=== PATIENT | male | born 1950 | race American Indian/Alaskan Native ===

== ENCOUNTER 2021-04-24 09:55 | Emergency (ER) | payer MEDICARE ==
[2021-04-24] MEDS ORDERED: ONDANSETRON 4 MG ODT TAB PO ONE (10:29)
[2021-04-24] MEDS ORDERED: MORPHINE 4 MG/1 ML INJ IM ONE (10:30)
[2021-04-24 10:59] VITALS: BP 121/65
--- NOTE | 2021-04-24 10:59 | Emergency Department Report ---
ED Abdominal Pain HPI - General Chief Complaint: Abdominal Pain Stated Complaint: KIDNEY PAIN Time Seen by Provider: 04/24/21 10:11 Source: patient Mode of arrival: Ambulatory Limitations: No Limitations - History of Present Illness Initial Comments: Patient is a 70-year-old male presents emergency room with complaints of left- sided abdominal pain that has been ongoing for a couple of months but increased last night. Patient states that he was diagnosed with a mass on his kidney and LAD which they believe could be cancerous. He is currently being worked up at [facility] for cancer and is seeing a kidney specialist and a oncologist. He reports that he had a CT scan yesterday at [place]. He states he is scheduled to have an MRI. Patient was given a prescription for Percocet but he reports he is worried about taking medication. He states the pain last night kept him awake but he did not take anything for it. He states he is also been having hematuria during this time period. He denies any nausea, vomiting, diarrhea, hematochezia, melena, hematemesis, fever. He states he was also advised that he had kidney dysfunction from taking ibuprofen for 10 years. No allergies to medications. Severity scale (0 -10): 8 - Related Data Previous Rx's Medication Instructions Recorded Last Taken Type traMADoL [Ultram 50 MG tab] 50 mg PO Q6HR PRN #12 tablet 04/24/21 Unknown Rx Allergies Allergy/AdvReac Type Severity Reaction Status Date / Time No Known Allergies Allergy Unverified 04/24/21 10:09 ED Review of Systems ROS: Stated complaint: KIDNEY PAIN Other details as noted in HPI Comment: All other systems reviewed and negative ED Past Medical Hx - Past Medical History Previous Medical History?: No - Medications Home Medications: Home Medications Medication Instructions Recorded Confirmed Last Taken Type traMADoL [Ultram 50 MG tab] 50 mg PO Q6HR PRN #12 tablet 04/24/21 Unknown Rx ED Physical Exam - General Limitations: No Limitations General appearance: alert, in no apparent distress - Head Head exam: Present: atraumatic, normocephalic - Eye Eye exam: Present: normal appearance - ENT ENT exam: Present: mucous membranes moist - Respiratory Respiratory exam: Present: normal lung sounds bilaterally. Absent: respiratory distress, wheezes, rales, rhonchi, stridor, chest wall tenderness, accessory muscle use, decreased breath sounds, prolonged expiratory - Cardiovascular Cardiovascular Exam: Present: regular rate, normal rhythm, normal heart sounds. Absent: systolic murmur, diastolic murmur, rubs, gallop - GI/Abdominal GI/Abdominal exam: Present: soft, normal bowel sounds. Absent: distended, ten derness, guarding, rebound, rigid - Back Exam Back exam: Absent: CVA tenderness (R), CVA tenderness (L) - Neurological Exam Neurological exam: Present: alert, oriented X3 - Psychiatric Psychiatric exam: Present: normal affect, normal mood - Skin Skin exam: Present: warm, dry, intact ED Course Vital Signs 04/24/21 04/24/21 04/24/21 10:07 10:52 10:58 Temperature 97.4 F L 97.9 F 97.7 F Pulse Rate 81 73 63 Respiratory 18 16 14 Rate Blood Pressure 122/79 121/65 Blood Pressure 131/73 [Left] O2 Sat by Pulse 99 98 97 Oximetry ED Medical Decision Making - Lab Data Result diagrams: 04/24/21 10:35 04/24/21 10:35 Lab Results 04/24/21 04/24/21 04/24/21 Range/Units 10:35 10:35 11:00 WBC 11.6 H (4.5-11.0) K/mm3 RBC 4.09 (3.65-5.03) M/mm3 Hgb 12.9 (11.8-15.2) gm/dl Hct 37.8 (35.5-45.6) % MCV 92 (84-94) fl MCH 32 (28-32) pg MCHC 34 (32-34) % RDW 13.2 (13.2-15.2) % Plt Count 307 (140-440) K/mm3 Lymph % (Auto) 11.5 L (13.4-35.0) % [place] % (Auto) 10.7 H (0.0-7.3) % Eos % (Auto) 3.6 (0.0-4.3) % Baso % (Auto) 0.4 (0.0-1.8) % Lymph # (Auto) 1.3 (1.2-5.4) K/mm3 [place] # (Auto) 1.2 H (0.0-0.8) K/mm3 Eos # (Auto) 0.4 (0.0-0.4) K/mm3 Baso # (Auto) 0.0 (0.0-0.1) K/mm3 Seg Neutrophils % 73.8 H (40.0-70.0) % Seg Neutrophils # 8.6 H (1.8-7.7) K/mm3 Sodium 134 L (137-145) mmol/L Potassium 5.2 H (3.6-5.0) mmol/L Chloride 97.9 L (98-107) mmol/L Carbon Dioxide 26 (22-30) mmol/L Anion Gap 15 mmol/L BUN 27 H (9-20) mg/dL Creatinine 2.0 H (0.8-1.3) mg/dL Estimated GFR 40 ml/min BUN/Creatinine Ratio 14 % Glucose 126 H (75-100) mg/dL Calcium 9.7 (8.4-10.2) mg/dL Total Bilirubin 0.50 (0.1-1.2) mg/dL AST 27 (5-40) units/L ALT 25 (7-56) units/L Alkaline Phosphatase 78 (35-129) units/L Total Protein 8.7 H (6.3-8.2) g/dL Albumin 4.2 (3.9-5) g/dL Albumin/Globulin Ratio 0.9 % Urine Color Yellow (Yellow) Urine Turbidity Clear (Clear) Urine pH 5.0 (5.0-7.0) Ur Specific [place] 1.017 (1.003-1.030) Urine Protein <15 mg/dl (Negative) mg/dL Urine Glucose (UA) Neg (Negative) mg/dL Urine Ketones Neg (Negative) mg/dL Urine Blood Neg (Negative) Urine Nitrite Neg (Negative) Urine Bilirubin Neg (Negative) Urine Urobilinogen 2.0 (<2.0) mg/dL Ur Leukocyte Esterase Neg (Negative) Urine WBC (Auto) < 1.0 (0.0-6.0) /HPF Urine RBC (Auto) 1.0 (0.0-6.0) /HPF Vital Signs 04/24/21 04/24/21 04/24/21 10:07 10:52 10:58 Temperature 97.4 F L 97.9 F 97.7 F Pulse Rate 81 73 63 Respiratory 18 16 14 Rate Blood Pressure 122/79 121/65 Blood Pressure 131/73 [Left] O2 Sat by Pulse 99 98 97 Oximetry - Medical Decision Making Patient is a 70-year-old male presents emergency room with complaints of left- sided abdominal pain that has been ongoing for a couple of months but increased last night. Patient states that he was diagnosed with a mass on his kidney and LAD which they believe could be cancerous. He is currently being worked up at [facility] for cancer and is seeing a kidney specialist and a oncologist. He reports that he had a CT scan yesterday at [place]. He states he is scheduled to have an MRI. Patient was given a prescription for Percocet but he reports he is worried about taking medication. He states the pain last night kept him awake but he did not take anything for it. He states he is also been having hematuria during this time period. He denies any nausea, vomiting, diarrhea, hematochezia, melena, hematemesis, fever. He states he was also advised that he had kidney dysfunction from taking ibuprofen for 10 years. No allergies to medications. Vitals are normal. No abdominal or CVA tenderness on exam. No significant leukocytosis. Labs consistent with CKD, he has very mild hyperkalemia at 5.2, mild dehydration encouraged oral hydration, patient is having no vomiting. Patient given Kayexalate for hyperkalemia. UA is normal limits. Patient given medications in the emergency department with improvement of his pain. Patient is already appropriately being worked up and is seeing specialists and has an MRI scheduled and just had CT imaging performed yesterday. Patient given prescription for tramadol as he states he does not want to take his Percocet. Discussed all results with patient answer questions and discussed the importance of outpatient follow-up. Discussed very strict return precautions. Discussed case with Dr. Mendiola, ER attending who is agreeable with plan. Advised patient Please take medication as prescribed as needed for pain. Increase your fluid intake. Follow-up with a primary care doctor, you need to have your labs retested in approximately 3 to 5 days. Follow-up with your oracle technical architect. Follow-up with your oncologist. Return to emergency room for any new or worsening symptoms. Critical care attestation.: If time is entered above; I have spent that time in minutes in the direct care of this critically ill patient, excluding procedure time. ED Disposition Clinical Impression: Hyperkalemia Abdominal pain Qualifiers: Abdominal location: left lower quadrant Qualified Code(s): R10.32 - Left lower quadrant pain CKD (chronic kidney disease) Qualifiers: Chronic kidney disease stage: unspecified stage Qualified Code(s): N18.9 - Chronic kidney disease, unspecified Disposition: 01 HOME / SELF CARE / HOMELESS Is pt being admited?: No Does the pt Need Aspirin: No Condition: Stable Instructions: Abdominal Pain, Adult, Chronic Kidney Disease, Adult Additional Instructions: Please take medication as prescribed as needed for pain. Increase your fluid intake. Follow-up with a primary care doctor, you need to have your labs retested in approximately 3 to 5 days. Follow-up with your oracle technical architect. Follow-up with your oncologist. Return to emergency room for any new or worsening symptoms. Prescriptions: traMADoL [Ultram 50 MG tab] 50 mg PO Q6HR PRN #12 tablet PRN Reason: Pain Referrals: MARILEE AYERS MD [Staff Physician] - 3-5 Days your, oracle technical architect [Other] - 3-5 Days your, oncologist [Other] - 3-5 Days Time of Disposition: 11:42 Print Language: KAZAKH
[2021-04-24 11:07] LABS: Basophils % (Auto) 0.4 % (0.0-1.8); Eosinophils # (Auto) 0.4 K/mm3 (0.0-0.4); Eosinophils % (Auto) 3.6 % (0.0-4.3); Hematocrit 37.8 % (35.5-45.6); Hemoglobin 12.9 gm/dl (11.8-15.2); Lymphocytes # (Auto) 1.3 K/mm3 (1.2-5.4); Lymphocytes % (Auto) 11.5 % (13.4-35.0); Mean Corpuscular HGB Conc 34 % (32-34); Mean Corpuscular Volume 92 fl (84-94); Monocytes # (Auto) 1.2 K/mm3 (0.0-0.8); Monocytes % (Auto) 10.7 % (0.0-7.3); Platelet Count 307 K/mm3 (140-440); Red Blood Count 4.09 M/mm3 (3.65-5.03); Red Cell Distribution Width 13.2 % (13.2-15.2)
[2021-04-24 11:13] LABS: Bilirubin,Urine NEG (Negative); Blood,Urine NEG (Negative); Color,Urine Yellow (Yellow); Protein,Urine <15 mg/dL mg/dL (Negative); WBC,Urine < 1.0 /HPF (0.0-6.0)
[2021-04-24 11:26] LABS: Albumin 4.2 g/dL (3.9-5); Calcium 9.7 mg/dL (8.4-10.2)
[2021-04-24] MEDS ORDERED: SODIUM POLYSTYRENE 15 GM/60 ML ORAL LIQD PO ONE (11:41)
== END 2021-04-24 12:12 | disposition home or self-care (01) ==
LOC: ED 09:55
DX: N18.9 Chronic kidney disease, unspecified (principal); E87.5 Hyperkalemia; R10.9 Unspecified abdominal pain
CPT/HCPCS: 36415; 80053; 81001; 85025; 96372; 99283; J2270; Q0162

== ENCOUNTER 2021-05-06 13:08 | Emergency (ER) | payer MEDICARE ==
[2021-05-06] MEDS ORDERED: MORPHINE 4 MG/1 ML INJ IM ONE (13:38)
[2021-05-06] MEDS ORDERED: ONDANSETRON 4 MG ODT TAB PO ONE (13:38)
--- NOTE | 2021-05-06 13:42 | Emergency Department Report ---
HPI - General Chief Complaint: Abdominal Pain Time Seen by Provider: 05/06/21 13:25 - HPI HPI: This is a 70-year-old -[place] male who has a history of a left-sided renal mass that was found out to be cancerous. This was found 6 weeks ago while in [facility]. He is now being followed by urology, oncology and nephrology at [facility]. The patient comes in complaining of severe left mid flank and mid back pain. This is the same pain that he has been dealing with that initially brought him to the emergency department in [facility]. He has been given some prescriptions for Percocet, but was initially concerned about taking that medication. The patient was seen here for similar symptoms about 2 weeks ago and was prescribed tramadol. He has used this medication without much relief. Patient says that he got a shot of morphine when he was here last time and "that was the last time that I was pain- free." Patient also says that he has been having some difficulty with urination over the past 1 to 2 days. He is able to urinate but it takes some time for him to void. ED Past Medical Hx - Past Medical History Previous Medical History?: Yes Hx Renal Disease: Yes Hx of Cancer: Yes (kidney) - Surgical History Past Surgical History?: No - Social History Smoking Status: Never Smoker Substance Use Type: Alcohol, Prescribed - Medications Home Medications: Home Medications Medication Instructions Recorded Confirmed Last Taken Type traMADoL [Ultram 50 MG tab] 50 mg PO Q6HR PRN #12 tablet 04/24/21 Unknown Rx Tamsulosin [Flomax] 0.4 mg PO QDAY #10 cap 05/06/21 Unknown Rx oxyCODONE /ACETAMINOPHEN [Percocet 1 tab PO Q6HR PRN #12 tablet 05/06/21 Unknown Rx 5/325] ED Review of Systems ROS: Stated complaint: LOWER ABD,AND BACK PAIN Other details as noted in HPI Comment: All other systems reviewed and negative Constitutional: denies: chills, fever Eyes: denies: eye pain, vision change ENT: denies: ear pain, throat pain Respiratory: denies: cough, shortness of breath Cardiovascular: denies: chest pain, palpitations Gastrointestinal: abdominal pain (Left-sided flank pain). denies: vomiting Genitourinary: other (Difficulty with urination). denies: discharge Musculoskeletal: denies: back pain, arthralgia Skin: denies: rash, lesions Neurological: denies: headache, weakness Physical Exam - Physical Exam Vital Signs: Vital Signs 05/06/21 13:15 Temperature 97.6 F Pulse Rate 73 Respiratory 20 Rate Blood Pressure 122/72 O2 Sat by Pulse 98 Oximetry Physical Exam: GENERAL: The patient is well-developed well-nourished. HENT: Normocephalic. Atraumatic. Patient has moist mucous membranes. EYES: Extraocular motions are intact. NECK: Supple. Trachea is midline. CHEST/LUNGS: Clear to auscultation. There is no respiratory distress noted. HEART/CARDIOVASCULAR: Regular. There is no tachycardia. There is no murmur. ABDOMEN: Abdomen is soft, nontender. Unable to reproduce left-sided abdominal or flank pain to palpation. Patient has normal bowel sounds. SKIN: Skin is warm and dry. NEURO: The patient is awake, alert, and oriented. The patient is cooperative. The patient has no focal neurologic deficits. Normal speech. MUSCULOSKELETAL: There is no tenderness or deformity. There is no limitation range of motion. BACK: No midline thoracic or lumbar tenderness to palpation. No CVA tenderness to palpation. ED Course Vital Signs 05/06/21 13:15 Temperature 97.6 F Pulse Rate 73 Respiratory 20 Rate Blood Pressure 122/72 O2 Sat by Pulse 98 Oximetry ED Medical Decision Making - Lab Data Result diagrams: 05/06/21 13:49 05/06/21 13:49 Lab Results 05/06/21 05/06/21 05/06/21 Range/Units 13:49 13:49 Unknown WBC 12.5 H (4.5-11.0) K/mm3 RBC 3.93 (3.65-5.03) M/mm3 Hgb 11.8 (11.8-15.2) gm/dl Hct 36.1 (35.5-45.6) % MCV 92 (84-94) fl MCH 30 (28-32) pg MCHC 33 (32-34) % RDW 12.9 L (13.2-15.2) % Plt Count 350 (140-440) K/mm3 Lymph % (Auto) 8.9 L (13.4-35.0) % [place] % (Auto) 10.0 H (0.0-7.3) % Eos % (Auto) 3.3 (0.0-4.3) % Baso % (Auto) 0.3 (0.0-1.8) % Lymph # (Auto) 1.1 L (1.2-5.4) K/mm3 [place] # (Auto) 1.2 H (0.0-0.8) K/mm3 Eos # (Auto) 0.4 (0.0-0.4) K/mm3 Baso # (Auto) 0.0 (0.0-0.1) K/mm3 Seg Neutrophils % 77.5 H (40.0-70.0) % Seg Neutrophils # 9.7 H (1.8-7.7) K/mm3 Sodium 132 L (137-145) mmol/L Potassium 5.4 H (3.6-5.0) mmol/L Chloride 97.1 L (98-107) mmol/L Carbon Dioxide 25 (22-30) mmol/L Anion Gap 15 mmol/L BUN 26 H (9-20) mg/dL Creatinine 1.9 H (0.8-1.3) mg/dL Estimated GFR 43 ml/min BUN/Creatinine Ratio 14 % Glucose 133 H (75-100) mg/dL Calcium 9.4 (8.4-10.2) mg/dL Total Bilirubin 0.20 (0.1-1.2) mg/dL AST 19 (5-40) units/L ALT 17 (7-56) units/L Alkaline Phosphatase 77 (35-129) units/L Total Protein 7.7 (6.3-8.2) g/dL Albumin 3.8 L (3.9-5) g/dL Albumin/Globulin Ratio 1.0 % Urine Color Yellow (Yellow) Urine Turbidity Clear (Clear) Urine pH 5.0 (5.0-7.0) Ur Specific [place] 1.017 (1.003-1.030) Urine Protein <15 mg/dl (Negative) mg/dL Urine Glucose (UA) Neg (Negative) mg/dL Urine Ketones Neg (Negative) mg/dL Urine Blood Neg (Negative) Urine Nitrite Neg (Negative) Urine Bilirubin Neg (Negative) Urine Urobilinogen < 2.0 (<2.0) mg/dL Ur Leukocyte Esterase Neg (Negative) Urine WBC (Auto) 1.0 (0.0-6.0) /HPF Urine RBC (Auto) 1.0 (0.0-6.0) /HPF U Epithel Cells (Auto) < 1.0 (0-13.0) /HPF Urine Mucus Few /HPF - Medical Decision Making This patient presents to the emergency department with the complaint of left- sided abdominal, flank and back pain with a history of a cancerous left renal mass. Labs have been mostly unremarkable including CBC, metabolic panel, and urinalysis, other than some chronic kidney disease consistent with previous visits and mild hyperkalemia with a potassium of 5.5. The patient was given a dose of Kayexalate. Patient was given a dose of IV analgesia and upon reevaluation is feeling greatly improved and says the pain has resolved. The patient says that he has had multiple CT imaging of this mass in the past 6 weeks, and is currently being followed at [place] by oncology and urology. Since the patient's pain has resolved with a single dose of analgesia, and based on the labs, I do not feel that the patient needed repeat CT imaging at this time. Vital signs have been reassuring including being afebrile. He has been given a small prescription of pain medication and instructed to follow-up with his doctors at [place]. Critical Care Time: No Critical care attestation.: If time is entered above; I have spent that time in minutes in the direct care of this critically ill patient, excluding procedure time. ED Disposition Clinical Impression: Renal mass, left, Flank pain, Hyperkalemia CKD (chronic kidney disease) Qualifiers: Chronic kidney disease stage: unspecified stage Qualified Code(s): N18.9 - Chronic kidney disease, unspecified Disposition: 01 HOME / SELF CARE / HOMELESS Is pt being admited?: No Condition: Stable Instructions: Renal Mass, Hyperkalemia, Flank Pain, Adult, Chronic Kidney Disease, Adult Additional Instructions: Please follow-up with your primary care physician, oncologist, and urologist this week. You have been prescribed a medication that is sedating and therefore should not be taken prior to driving, working, and responsible for children and in no way should be mixed with alcohol of any quantity. Return to the emergency department with any worsening of your symptoms, new or concerning symptoms not addressed during this current emergency department visit, or with any acute distress. Prescriptions: Tamsulosin [Flomax] 0.4 mg PO QDAY #10 cap oxyCODONE /ACETAMINOPHEN [Percocet 5/325] 1 tab PO Q6HR PRN #12 tablet PRN Reason: Pain Referrals: PRIMARY CARE, [Primary Care Provider] - 2-3 Days Urologist, Your [Other] - 2-3 Days Oncologist, Your [Other] - 2-3 Days Time of Disposition: 15:15
[2021-05-06] MEDS ORDERED: ONDANSETRON 4 MG/2 ML INJ IV ONE (13:45)
[2021-05-06] MEDS ORDERED: MORPHINE 4 MG/1 ML INJ IV ONE (13:45)
[2021-05-06] MEDS ORDERED: HYDROmorphone 1 MG/1 ML INJ IV ONE (14:08)
[2021-05-06 14:23] LABS: Bilirubin,Urine NEG (Negative); Blood,Urine NEG (Negative); Color,Urine Yellow (Yellow); Mucus,Urine FEW /HPF; Protein,Urine <15 mg/dL mg/dL (Negative); Urobilinogen,Urine < 2.0 mg/dL (<2.0)
[2021-05-06 14:28] LABS: Eosinophils # (Auto) 0.4 K/mm3 (0.0-0.4); Eosinophils % (Auto) 3.3 % (0.0-4.3); Hematocrit 36.1 % (35.5-45.6); Hemoglobin 11.8 gm/dl (11.8-15.2); Lymphocytes # (Auto) 1.1 K/mm3 (1.2-5.4); Lymphocytes % (Auto) 8.9 % (13.4-35.0); Mean Corpuscular HGB Conc 33 % (32-34); Mean Corpuscular Volume 92 fl (84-94); Monocytes # (Auto) 1.2 K/mm3 (0.0-0.8); Platelet Count 350 K/mm3 (140-440); Red Blood Count 3.93 M/mm3 (3.65-5.03)
[2021-05-06 14:30] LABS: Basophils % (Auto) 0.3 % (0.0-1.8); Red Cell Distribution Width 12.9 % (13.2-15.2)
[2021-05-06 14:45] LABS: Albumin 3.8 g/dL (3.9-5); Calcium 9.4 mg/dL (8.4-10.2)
[2021-05-06] MEDS ORDERED: SODIUM POLYSTYRENE 15 GM/60 ML ORAL LIQD PO ONE (14:55)
[2021-05-06 15:36] VITALS: BP 114/66
== END 2021-05-06 15:36 | disposition home or self-care (01) ==
LOC: ED 13:08
DX: N18.9 Chronic kidney disease, unspecified (principal); N28.89 Other specified disorders of kidney and ureter; E87.5 Hyperkalemia; Z72.89 Other problems related to lifestyle; Z79.899 Other long term (current) drug therapy
CPT/HCPCS: 36415; 80053; 81001; 85025; 96374; 96375; 99283; J1170; J2405; 99282

== ENCOUNTER 2021-05-14 11:28 | Emergency (ER) | payer MEDICARE ==
[2021-05-14] MEDS ORDERED: ONDANSETRON 4 MG/2 ML INJ IM ONE (16:33)
[2021-05-14] MEDS ORDERED: HYDROmorphone 1 MG/1 ML INJ IM ONE (16:33)
--- NOTE | 2021-05-14 16:34 | Emergency Department Report ---
ED Abdominal Pain HPI - General Chief Complaint: Abdominal Pain Stated Complaint: BODY PAIN Time Seen by Provider: 05/14/21 16:12 Source: patient Mode of arrival: Ambulatory Limitations: No Limitations - History of Present Illness Initial Comments: 70-year-old -[place] male who has a history of chronic renal insufficiency and a left-sided renal neoplastic mass found 6 weeks ago while in [facility]. Pt is getting a "second opinion" and workup by the oncologist, urologist, and paper cap machine operator at [facility]. Patient presents to the hospital planing of severe left mid flank and mid back pain ongoing since this initial diagnosis 6 weeks ago. Patient has been receiving intermittent Percocet prescriptions and is currently out. Patient states has received a pain shot during ED visit in the past and requesting another one to help his current pain. No reports of nausea, vomiting, fever, or hematuria. Patient was prescribed Flomax due to reported difficulty urinating with last ED visit on the and states symptoms have improved. Patient has received multiple CAT scans with last CAT scan on April 23 prior to his initial ER visit this month. This is patient's third ED visit this month for pain related to his cancer. He does not have a primary care doctor or instructor painting to prescribe him narcotics for pain relief. - Related Data Previous Rx's Medication Instructions Recorded Last Taken Type traMADoL [Ultram 50 MG tab] 50 mg PO Q6HR PRN #12 tablet 04/24/21 Unknown Rx Tamsulosin [Flomax] 0.4 mg PO QDAY #10 cap 05/06/21 Unknown Rx oxyCODONE /ACETAMINOPHEN [Percocet 1 tab PO Q6HR PRN #12 tablet 05/14/21 Unknown Rx 5/325 mg] Allergies Allergy/AdvReac Type Severity Reaction Status Date / Time No Known Allergies Allergy Unverified 04/24/21 10:09 ED Review of Systems ROS: Stated complaint: BODY PAIN Other details as noted in HPI Comment: All other systems reviewed and negative ED Past Medical Hx - Past Medical History Previous Medical History?: Yes Hx Renal Disease: Yes - Surgical History Past Surgical History?: No - Social History Smoking Status: Never Smoker - Medications Home Medications: Home Medications Medication Instructions Recorded Confirmed Last Taken Type traMADoL [Ultram 50 MG tab] 50 mg PO Q6HR PRN #12 tablet 04/24/21 Unknown Rx Tamsulosin [Flomax] 0.4 mg PO QDAY #10 cap 05/06/21 Unknown Rx oxyCODONE /ACETAMINOPHEN [Percocet 1 tab PO Q6HR PRN #12 tablet 05/14/21 Unknown Rx 5/325 mg] ED Physical Exam - General Limitations: No Limitations - Other Other exam information: General: Uncomfortable secondary to pain Head: Atraumatic Eyes: normal appearance ENT: Moist mucous membranes Neck: Normal appearance, no midline tenderness Chest: Clear to auscultation bilaterally CV: Regular rate and rhythm Abdomen: Soft, normal bowel sounds, left sided abdominal pain, left flank tenderness no rebound or guarding Back: Normal inspection Extremity: Normal inspection, full range of motion Neuro: Alert O x 3, no facial asymmetry, speech clear, no gross motor sensory deficit Psych: Agitated Skin: No rash ED Course Vital Signs 05/14/21 05/14/21 15:37 16:51 Temperature 98.0 F Pulse Rate 68 Respiratory 20 18 Rate Blood Pressure 147/85 O2 Sat by Pulse 99 Oximetry - Consultations Consultation #1: 05/14/21 17:45 Case discussed with paper cap machine operator on-call Dr. Hailey Leon Suggest Kayexalate 45 g and outpatient follow-up with his paper cap machine operator ED Medical Decision Making - Lab Data Result diagrams: 05/14/21 16:43 05/14/21 16:43 Lab Results 05/14/21 05/14/21 05/14/21 Range/Units 16:43 16:43 Unknown WBC 14.6 H (4.5-11.0) K/mm3 RBC 4.17 (3.65-5.03) M/mm3 Hgb 12.5 (11.8-15.2) gm/dl Hct 38.4 (35.5-45.6) % MCV 92 (84-94) fl MCH 30 (28-32) pg MCHC 33 (32-34) % RDW 13.3 (13.2-15.2) % Plt Count 348 (140-440) K/mm3 Lymph % (Auto) 9.0 L (13.4-35.0) % [place] % (Auto) 10.6 H (0.0-7.3) % Eos % (Auto) 1.4 (0.0-4.3) % Baso % (Auto) 0.2 (0.0-1.8) % Lymph # (Auto) 1.3 (1.2-5.4) K/mm3 [place] # (Auto) 1.5 H (0.0-0.8) K/mm3 Eos # (Auto) 0.2 (0.0-0.4) K/mm3 Baso # (Auto) 0.0 (0.0-0.1) K/mm3 Seg Neutrophils % 78.8 H (40.0-70.0) % Seg Neutrophils # 11.5 H (1.8-7.7) K/mm3 Sodium 133 L (137-145) mmol/L Potassium 5.5 H (3.6-5.0) mmol/L Chloride 95.3 L (98-107) mmol/L Carbon Dioxide 25 (22-30) mmol/L Anion Gap 18 mmol/L BUN 26 H (9-20) mg/dL Creatinine 1.7 H (0.8-1.3) mg/dL Estimated GFR 49 ml/min BUN/Creatinine Ratio 15 % Glucose 100 (75-100) mg/dL Calcium 9.5 (8.4-10.2) mg/dL Total Bilirubin 0.30 (0.1-1.2) mg/dL AST 25 (5-40) units/L ALT 20 (7-56) units/L Alkaline Phosphatase 87 (35-129) units/L Total Protein 7.6 (6.3-8.2) g/dL Albumin 4.1 (3.9-5) g/dL Albumin/Globulin Ratio 1.2 % Urine Color Yellow (Yellow) Urine Turbidity Clear (Clear) Urine pH 5.0 (5.0-7.0) Ur Specific [place] 1.019 (1.003-1.030) Urine Protein 30 mg/dl (Negative) mg/dL Urine Glucose (UA) Neg (Negative) mg/dL Urine Ketones Neg (Negative) mg/dL Urine Blood Neg (Negative) Urine Nitrite Neg (Negative) Urine Bilirubin Neg (Negative) Urine Urobilinogen < 2.0 (<2.0) mg/dL Ur Leukocyte Esterase Neg (Negative) Urine WBC (Auto) < 1.0 (0.0-6.0) /HPF Urine RBC (Auto) 2.0 (0.0-6.0) /HPF Urine Mucus Few /HPF - Medical Decision Making 70-year-old male with a known left renal neoplastic mass with ongoing pain secondary to same he presents to the hospital once again with complaints of pain after running out of his Percocet. Patient received IM dose of narcotics as requested. Will be prescribed Percocet. Repeat labs show mild improvement in renal insufficiency however, potassium is elevated. I called the lab and they report no signs of hemolysis. Case discussed with on-call paper cap machine operator who anat mmends Kayexalate 45 g and follow-up with his paper cap machine operator. Patient will provide a copy of his labs and encouraged to follow-up with his doctor for repeat blood work within the next 2 days. Also provided hyperkalemia discharge instructions to avoid excessive potassium intake. Patient encouraged to follow- up with primary care doctor and also a pain specialist for definitive pain management (as opposed to the ER) since this is a chronic condition and unlikely to improve given cancer diagnosis Critical Care Time: No Critical care attestation.: If time is entered above; I have spent that time in minutes in the direct care of this critically ill patient, excluding procedure time. ED Disposition Clinical Impression: Renal mass, left, Chronic pain, Cancer, Chronic renal insufficiency, Hyperkalemia Disposition: 01 HOME / SELF CARE / HOMELESS Is pt being admited?: No Does the pt Need Aspirin: No Condition: Stable Instructions: Renal Mass, Hyperkalemia, Chronic Pain, Adult, Chronic Kidney Disease, Adult, Watg-[id number] Additional Instructions: Take the medication as prescribed. Your potassium level was high today. You were provided Kayexalate 45 g in the ER. This will cause you to have diarrhea and loose potassium through your stool. Avoid potassium containing foods as described on your discharge instructions. Have your physician and/or paper cap machine operator recheck your potassium level within 2 days. Take the copy of the labs provided to your doctor for follow-up. It is important you follow-up with your primary care doctor (or the one provided) and a pain specialist for continued management of your chronic pain. Return if symptoms worsen as indicated by your discharge instructions. Prescriptions: oxyCODONE /ACETAMINOPHEN [Percocet 5/325 mg] 1 tab PO Q6HR PRN #12 tablet PRN Reason: Pain Referrals: CAITIE HAILE MD [Staff Physician] - 2-3 Days (Primary care doctor) Time of Disposition: 18:20
[2021-05-14 16:53] LABS: Bilirubin,Urine NEG (Negative); Blood,Urine NEG (Negative); Color,Urine Yellow (Yellow); Mucus,Urine FEW /HPF; Urobilinogen,Urine < 2.0 mg/dL (<2.0); WBC,Urine < 1.0 /HPF (0.0-6.0)
[2021-05-14 17:17] LABS: Basophils % (Auto) 0.2 % (0.0-1.8); Eosinophils # (Auto) 0.2 K/mm3 (0.0-0.4); Eosinophils % (Auto) 1.4 % (0.0-4.3); Hematocrit 38.4 % (35.5-45.6); Hemoglobin 12.5 gm/dl (11.8-15.2); Lymphocytes # (Auto) 1.3 K/mm3 (1.2-5.4); Mean Corpuscular HGB Conc 33 % (32-34); Mean Corpuscular Volume 92 fl (84-94); Monocytes # (Auto) 1.5 K/mm3 (0.0-0.8); Monocytes % (Auto) 10.6 % (0.0-7.3); Platelet Count 348 K/mm3 (140-440); Red Blood Count 4.17 M/mm3 (3.65-5.03); Red Cell Distribution Width 13.3 % (13.2-15.2)
[2021-05-14 17:29] LABS: Albumin 4.1 g/dL (3.9-5); Calcium 9.5 mg/dL (8.4-10.2)
[2021-05-14] MEDS ORDERED: SODIUM POLYSTYRENE 15 GM/60 ML ORAL LIQD PO ONE (17:44)
[2021-05-14 18:36] VITALS: BP 116/84
== END 2021-05-14 18:36 | disposition home or self-care (01) ==
LOC: ED 11:28
DX: E87.5 Hyperkalemia (principal); N28.89 Other specified disorders of kidney and ureter; N18.9 Chronic kidney disease, unspecified; G89.29 Other chronic pain
CPT/HCPCS: 36415; 80053; 81001; 85025; 96372; 99283; J1170; J2405; 99282

== ENCOUNTER 2021-05-21 04:22 | Emergency (ER) | payer MEDICARE ==
[2021-05-21 04:32] VITALS: BP 134/84
[2021-05-21] MEDS ORDERED: ONDANSETRON 4 MG ODT TAB PO ONE (04:54)
[2021-05-21] MEDS ORDERED: HYDROmorphone 1 MG/1 ML INJ IM ONE ×2 (04:54)
--- NOTE | 2021-05-21 04:59 | Emergency Department Report ---
ED General Adult HPI - General Chief complaint: Abdominal Pain Stated complaint: SHORTNESS OF BREATH/ABDOMINAL PAIN Time Seen by Provider: 05/21/21 04:30 Source: patient Mode of arrival: Ambulatory Limitations: No Limitations - History of Present Illness Initial comments: Patient presents secondary to abdominal pain and shortness of breath. Patient has a history of recent diagnosis of renal cancer. This now seems to have metastasis. He is scheduled for nephrectomy on the of this month. He has been followed by [facility]. He does not have a primary care physician. None of the physicians at [facility] have been treating his pain. He has not been getting analgesics from them. He states, and his daughter reiterate, that they have had to come to the ER to get pain control and prescriptions. He has not been referred to pain management. He has not been seen by pain management. He does not have a family physician. He has not been able to follow-up. Because of the ongoing pain, he came here this morning. He got to the point tonight he could not sleep. He states that the pain is so severe he does have trouble breathing. As he sits and speak to me, he states that he feels short of breath. The pain is in the lower abdomen. This is the same pain that he has been having. This is nothing new for him. - Related Data Previous Rx's Medication Instructions Recorded Last Taken Type Tamsulosin [Flomax] 0.4 mg PO QDAY #10 cap 05/06/21 Unknown Rx oxyCODONE /ACETAMINOPHEN [Percocet 1 tab PO Q6HR PRN #12 tablet 05/21/21 Unknown Rx 5/325 mg] Allergies Allergy/AdvReac Type Severity Reaction Status Date / Time No Known Allergies Allergy Unverified 04/24/21 10:09 ED Review of Systems ROS: Stated complaint: SHORTNESS OF BREATH/ABDOMINAL PAIN Other details as noted in HPI Comment: All other systems reviewed and negative Constitutional: denies: fever Eyes: denies: vision change ENT: denies: throat pain Respiratory: see HPI. denies: cough Cardiovascular: denies: chest pain Endocrine: denies: unexplained weight loss Gastrointestinal: as per HPI, abdominal pain Genitourinary: denies: urgency Musculoskeletal: denies: back pain Skin: denies: rash Neurological: denies: headache Hematological/Lymphatic: denies: easy bruising ED Past Medical Hx - Past Medical History Previous Medical History?: Yes Hx Renal Disease: Yes Hx of Cancer: Yes (Left Kidney) Additional medical history: Swollen Lymph nodes left neck - Surgical History Past Surgical History?: No - Family History Family history: no significant - Social History Smoking Status: Never Smoker Substance Use Type: None - Medications Home Medications: Home Medications Medication Instructions Recorded Confirmed Last Taken Type Tamsulosin [Flomax] 0.4 mg PO QDAY #10 cap 05/06/21 Unknown Rx oxyCODONE /ACETAMINOPHEN [Percocet 1 tab PO Q6HR PRN #12 tablet 05/21/21 Unknown Rx 5/325 mg] ED Physical Exam - General Limitations: No Limitations, Other (Pulse ox was noted and normal) General appearance: alert, in no apparent distress - Head Head exam: Present: atraumatic, normocephalic, normal inspection - Eye Eye exam: Present: normal appearance, EOMI. Absent: scleral icterus - ENT ENT exam: Present: mucous membranes moist, normal external ear exam - Neck Neck exam: Present: normal inspection. Absent: meningismus - Respiratory Respiratory exam: Present: normal lung sounds bilaterally, other (He is speaking in complete sentences without respiratory distress). Absent: respiratory di stress - Cardiovascular Cardiovascular Exam: Present: regular rate, normal rhythm - GI/Abdominal GI/Abdominal exam: Present: soft, tenderness (Left mid abdomen without rebound or guarding) - Extremities Exam Extremities exam: Present: normal capillary refill - Back Exam Back exam: Absent: CVA tenderness (R), CVA tenderness (L) - Neurological Exam Neurological exam: Present: alert, oriented X3, CN II-XII intact. Absent: motor sensory deficit - Psychiatric Psychiatric exam: Present: normal affect, normal mood - Skin Skin exam: Present: warm, dry ED Course Vital Signs 05/21/21 04:25 Temperature 98.6 F Pulse Rate 96 H Respiratory 20 Rate Blood Pressure 134/84 O2 Sat by Pulse 100 Oximetry - Reevaluation(s) Reevaluation #1: 05/21/21 04:57 Old records have been noted. Patient has been seen here recently for these recurrent episodes of pain. It has been documented previously that he does not have adequate pain management or primary care follow-up. His daughter is asking why they have not been treating his pain at [facility]. I cannot answer that question for her. He was given analgesics here and discharged. ED Medical Decision Making - Medical Decision Making Patient presents with an exacerbation of oncologic pain. He states that he is not really having any new symptoms. He reported dyspnea despite the fact that he was not hypoxic, not tachypneic, and in no respiratory distress. He had clear and equal breath sounds. Patient was treated symptomatically with analgesics. He was referred back to his oncologist for follow-up. He was comfortable with the current plan and management. He is scheduled to have surgery on the . We will refer him to a PCP. I do not believe that this represents pneumonia or pneumothorax. I talked about imaging with him. He states that an MRI was done 2 days ago of his chest and he does not want any imaging completed. He states that he just wants to feel less pain. Critical Care Time: No Critical care attestation.: If time is entered above; I have spent that time in minutes in the direct care of this critically ill patient, excluding procedure time. ED Disposition Clinical Impression: Cancer related pain, Shortness of breath Disposition: 01 HOME / SELF CARE / HOMELESS Is pt being admited?: No Condition: Stable Instructions: Shortness of Breath, Adult, [id number], Pain Medicine Instruct ions, [id number] Additional Instructions: Drink plenty water. Take your medications at home. Follow-up with a regular doctor. Follow-up with the referral physician. Keep your appointment for surgery. Return for any problems or concerns. Prescriptions: oxyCODONE /ACETAMINOPHEN [Percocet 5/325 mg] 1 tab PO Q6HR PRN #12 tablet PRN Reason: Pain Referrals: PRIMARY MD AVILA [Referring] - 3-5 Days CAITIE HAILE MD [Staff Physician] - 3-5 Days
== END 2021-05-21 05:16 | disposition home or self-care (01) ==
LOC: ED 04:22
DX: R06.02 Shortness of breath (principal); G89.3 Neoplasm related pain (acute) (chronic); C64.9 Malignant neoplasm of unspecified kidney, except renal pelvis
CPT/HCPCS: 96372; 99282; J1170; Q0162